=== PATIENT | male | born 1965 | race Two or more races ===

== ENCOUNTER → 2018-08-20 | Outpatient (CLI) | payer MEDICARE ==
[~2018-08-20] MED LIST: BUPR150T13 PO; CARV6.252 PO; DOLU50TA PO; HALO1TAB PO; HALO5TAB5 PO; LORA0.5T PO; PANT20TA3 PO; PROP20TA PO; RITO100C PO; [UNRECOGNIZED DRUG - CODE] PO
== END | disposition home or self-care (01) ==
LOC: CVU 10:16
PROVIDERS: ATTEND Internal Medicine Cardiovascular Disease
DX: I10 Essential (primary) hypertension (principal); R07.9 Chest pain, unspecified
CPT/HCPCS: 93306